=== PATIENT | female | born 1955 | race Caucasian/White ===

== ENCOUNTER 2021-01-18 10:55 | Emergency (ER) | payer SELFPAY ==
[2021-01-18 16:50] LABS: SARS-CoV-2 PCR by NAA Not Detected (NotDetected)
== END 2021-01-18 12:00 | disposition home or self-care (01) ==
LOC: ERS 10:55
DX: R05.9 Cough, unspecified (principal); R09.89 Other specified symptoms and signs involving the circulatory and respiratory systems; J34.89 Other specified disorders of nose and nasal sinuses; Z20.822 Contact with and (suspected) exposure to COVID-19
CPT/HCPCS: 71045; U0003; U0005

== ENCOUNTER 2022-01-08 10:15 | Emergency (ER) | payer SELFPAY ==
[2022-01-08] MEDS ORDERED: Dexamethasone 4 MG TAB ONE (11:30)
== END 2022-01-08 11:50 | disposition home or self-care (01) ==
LOC: ERS 10:15
DX: J06.9 Acute upper respiratory infection, unspecified (principal); Z20.822 Contact with and (suspected) exposure to COVID-19
CPT/HCPCS: 93005; 99283; J8540; U0003; U0005

== ENCOUNTER 2023-06-06 19:19 | Emergency (ER) | payer MEDICARE, SELFPAY ==
[2023-06-06 20:09] LABS: Influenza A by NAA Not Detected (NotDetected); SARS-CoV-2 NAA Rapid Test DETECTED (NotDetected)
== END 2023-06-06 21:45 | disposition home or self-care (01) ==
LOC: ERS 19:19
DX: U07.1 COVID-19 (principal)
CPT/HCPCS: 0241U; 99283

== ENCOUNTER 2023-09-15 12:22 | Outpatient (CLI) | payer MEDICARE | END 2023-09-15 12:23 | disposition home or self-care (01) | LOC: BICMAMMO 12:22 | PROVIDERS: ATTEND Family Medicine Sports Medicine | DX: Z12.31 Encounter for screening mammogram for malignant neoplasm of breast (principal) | CPT/HCPCS: 77063; 77067 ==

== ENCOUNTER 2024-06-03 16:08 | Inpatient (IN) | payer OTHER ==
[2024-06-03] MEDS ORDERED: Ondansetron PF 4 MG/2 ML Vial ONE (18:35)
[2024-06-03] MEDS ORDERED: Ketorolac Tromethamine 30 MG (1 mL) VIAL ONE (18:35)
[2024-06-03 18:42] LABS: #Basophils 0.03 10x3/uL (0.0-0.2); %Basophils 0.3 % (0.0-1.0); %Eosinophils 0.4 % (0.0-10.0); %Lymphocytes 8.4 % (21.0-51.0); %Monocytes 5.8 % (0.0-10.0); %Neutrophils 84.6 % (42.0-75.0); Hematocrit 41.1 % (36.0-47.0); Hemoglobin 13.9 g/dL (12.0-16.0); Mean Corpuscular HGB CONC 33.8 g/dL (32.0-36.0); Mean Corpuscular Hemoglobin 30.1 pg (27.0-31.0); Mean Platelet Volume 9.9 fL (7.4-10.4); Platelet Count 168 10x3/uL (130-400); RBC Distribution Width 13.1 % (11.5-14.5); Red Blood Cell (RBC) Count 4.62 mill/uL (4.20-5.40)
[2024-06-03 19:06] LABS: ALT (SGPT) 249 U/L (Less than 34); AST (SGOT) 317 U/L (11-34); Albumin 3.9 g/dL (3.1-4.5); Alkaline Phosphatase 150 U/L (40-110); Anion Gap 15 mmol/L (10-20); BUN (Urea Nitrogen) 10 mg/dL (9.8-20.1); Bilirubin, Total 3.6 mg/dL (0.3-1.2); Calc. Creatinine Clearance 0 mL/min (70-130); Calcium 8.9 mg/dL (7.8-10.44); Carbon Dioxide 24 mmol/L (23-31); Chloride 103 mmol/L (98-107); Estimated GFR 64; Globulin 3.7 g/dL (2.4-3.5); Glucose 100 mg/dL (80-115); Lipase 21 U/L (8-78); Potassium 4.3 mmol/L (3.5-5.1); Protein, Total 7.6 g/dL (5.8-8.1); Sodium 138 mmol/L (136-145)
[2024-06-03 19:07] LABS: Troponin I Less than 0.010 ng/mL (< 0.028)
[2024-06-03 19:48] LABS: Bilirubin 1+ (Negative); Blood, Urine 2+ (Negative); CAUTI Indications for Culture Pelvic or flank pain; Clarity Clear (Clear); Glucose, Urine (Dipstick) Normal (Negative); Ketone, Urine Negative (Negative); Leukocyte 75 Leu/uL (Negative); Nitrite Negative (Negative); Protein, Urine (Dipstick) 30 mg/dL (Neg-Trace); RBC/HPF 21-50 HPF (0-3); Specific Gravity, Urine 1.032 (1.002-1.036)
[2024-06-03 19:49] LABS: Bacteria/HPF 1+ HPF (None Seen); Urine Culture Reflex No No
[2024-06-03] MEDS ORDERED: Piperacillin/Tazobactam 3.375 GM VIAL ONE (20:52)
[2024-06-03] MEDS ORDERED: Sodium Chloride 0.9% 0 ML ONE (20:52)
[2024-06-03] MEDS ORDERED: Acetaminophen 325 MG TAB PO PRN (23:33)
[2024-06-03 23:54] VITALS: BMI 29.9
[2024-06-04] MEDS: Piperacillin/Tazobactam 3.375 GM in Sodium Chloride 0.9% 100 ML IVPB SCH (01:19)
[2024-06-04] MEDS: Ondansetron PF 4 MG/2 ML Vial IVP PRN (01:19)
[2024-06-04] MEDS: Ketorolac Tromethamine 30 MG (1 mL) VIAL IVP PRN (01:26)
[2024-06-04 05:48] LABS: #Basophils Less than 0.03 10x3/uL (0.0-0.2); %Basophils 0.4 % (0.0-1.0); %Eosinophils 1.8 % (0.0-10.0); %Lymphocytes 26.7 % (21.0-51.0); %Monocytes 11.1 % (0.0-10.0); %Neutrophils 59.6 % (42.0-75.0); Hematocrit 34.5 % (36.0-47.0); Hemoglobin 11.5 g/dL (12.0-16.0); Mean Corpuscular HGB CONC 33.3 g/dL (32.0-36.0); Mean Corpuscular Hemoglobin 29.9 pg (27.0-31.0); Mean Corpuscular Volume 89.6 fL (78.0-98.0); Mean Platelet Volume 9.5 fL (7.4-10.4); Platelet Count 143 10x3/uL (130-400); RBC Distribution Width 13.2 % (11.5-14.5); Red Blood Cell (RBC) Count 3.85 mill/uL (4.20-5.40)
[2024-06-04 06:02] LABS: ALT (SGPT) 196 U/L (Less than 34); AST (SGOT) 209 U/L (11-34); Albumin 3.1 g/dL (3.1-4.5); Alkaline Phosphatase 127 U/L (40-110); Anion Gap 13 mmol/L (10-20); BUN (Urea Nitrogen) 11 mg/dL (9.8-20.1); Calc. Creatinine Clearance 53 mL/min (70-130); Carbon Dioxide 23 mmol/L (23-31); Chloride 107 mmol/L (98-107); Estimated GFR 53; Globulin 2.8 g/dL (2.4-3.5); Glucose 91 mg/dL (80-115); Potassium 3.7 mmol/L (3.5-5.1); Protein, Total 5.9 g/dL (5.8-8.1); Sodium 139 mmol/L (136-145)
[2024-06-04] MEDS: Famotidine 20 MG TAB PO SCH (08:34)
[2024-06-04] MEDS: FLU (Fluad Triv) TS24-25 (65UP)/MF59C/PF 45 MCG/0.5 ML Syringe IM ONE (23:10)
[2024-06-05 05:38] LABS: #Basophils 0.05 10x3/uL (0.0-0.2); %Eosinophils 2.7 % (0.0-10.0); %Lymphocytes 33.7 % (21.0-51.0); %Monocytes 10.7 % (0.0-10.0); %Neutrophils 51.5 % (42.0-75.0); Hematocrit 36.1 % (36.0-47.0); Mean Corpuscular HGB CONC 33.2 g/dL (32.0-36.0); Mean Corpuscular Hemoglobin 30.4 pg (27.0-31.0); Mean Corpuscular Volume 91.4 fL (78.0-98.0); Mean Platelet Volume 10.5 fL (7.4-10.4); Platelet Count 156 10x3/uL (130-400); RBC Distribution Width 13.2 % (11.5-14.5); Red Blood Cell (RBC) Count 3.95 mill/uL (4.20-5.40)
[2024-06-05 05:51] LABS: ALT (SGPT) 157 U/L (Less than 34); AST (SGOT) 114 U/L (11-34); Alkaline Phosphatase 115 U/L (40-110); Anion Gap 11 mmol/L (10-20); BUN (Urea Nitrogen) 10 mg/dL (9.8-20.1); Bilirubin, Total 2.1 mg/dL (0.3-1.2); Calc. Creatinine Clearance 48 mL/min (70-130); Calcium 8.3 mg/dL (7.8-10.44); Carbon Dioxide 25 mmol/L (23-31); Chloride 108 mmol/L (98-107); Estimated GFR 47; Globulin 2.8 g/dL (2.4-3.5); Glucose 86 mg/dL (80-115); Potassium 4.3 mmol/L (3.5-5.1); Protein, Total 5.8 g/dL (5.8-8.1); Sodium 140 mmol/L (136-145)
[2024-06-05] MEDS ORDERED: Indomethacin 50 MG SUPP ONE (11:40)
[2024-06-05] MEDS ORDERED: Iopamidol 30 ML ONE (11:42)
[2024-06-05] MEDS ORDERED: fentaNYL PF 100 MCG/2 ML SYRINGE ONE (12:05)
[2024-06-05] MEDS ORDERED: Dexamethasone 20 MG/5 ML VIAL ONE (12:05)
[2024-06-05] MEDS ORDERED: Rocuronium Bromide 10 MG/ML (10ML VIAL) ONE ×2 (12:05→12:16)
[2024-06-05] MEDS ORDERED: Ondansetron PF 4 MG/2 ML Vial ONE (12:05)
[2024-06-05] MEDS ORDERED: Lidocaine 2% PF 5 ML VIAL ONE (12:05)
[2024-06-05] MEDS ORDERED: PROPOFOL 20 ML ONE (12:07)
[2024-06-05] MEDS ORDERED: Lidocaine 2% 6 ML (Jelly) SYR ONE (12:11)
[2024-06-05] MEDS ORDERED: GLYCOPYRROLATE/PF 0.2 MG/ML VIAL ONE (12:49)
[2024-06-05] MEDS ORDERED: Glucagon 1 MG/ML KIT ONE (13:01)
[2024-06-05] MEDS ORDERED: Promethazine HCl 25 MG/ML VIAL IM PRN (13:10)
[2024-06-05] MEDS ORDERED: Ondansetron HCl/PF 4 MG/2 ML Vial IVP PRN (13:10)
[2024-06-05] MEDS ORDERED: HYDROmorphone 2 MG/ML VIAL SLOW IVP PRN (13:10)
[2024-06-05] MEDS ORDERED: SUGAMMADEX SODIUM 200 MG/2 ML VIAL ONE (14:01)
[2024-06-05] MEDS ORDERED: Indocyanine Green 25 MG/10 ML VIAL IVP SCH (19:00)
[2024-06-05] MEDS: Benzonatate 100 MG CAP PO PRN (20:07)
[2024-06-05] MEDS: Ketorolac Tromethamine 30 MG (1 mL) VIAL IVP SCH (22:01)
[2024-06-06] MEDS: Famotidine 20 MG TAB PO SCH (05:17)
[2024-06-06 07:15] LABS: #Basophils Less than 0.03 10x3/uL (0.0-0.2); #Eosinophils Less than 0.03 10x3/uL (0.0-0.7); %Basophils 0.2 % (0.0-1.0); %Monocytes 7.2 % (0.0-10.0); Hematocrit 35.3 % (36.0-47.0); Hemoglobin 11.7 g/dL (12.0-16.0); Mean Corpuscular HGB CONC 33.1 g/dL (32.0-36.0); Mean Corpuscular Volume 90.5 fL (78.0-98.0); Mean Platelet Volume 10.6 fL (7.4-10.4); Platelet Count 151 10x3/uL (130-400)
[2024-06-06 07:52] LABS: ALT (SGPT) 123 U/L (Less than 34); AST (SGOT) 73 U/L (11-34); Albumin 3.2 g/dL (3.1-4.5); Alkaline Phosphatase 107 U/L (40-110); Anion Gap 14 mmol/L (10-20); BUN (Urea Nitrogen) 11 mg/dL (9.8-20.1); Bilirubin, Total 1.5 mg/dL (0.3-1.2); Calc. Creatinine Clearance 54 mL/min (70-130); Calcium 8.4 mg/dL (7.8-10.44); Carbon Dioxide 20 mmol/L (23-31); Chloride 110 mmol/L (98-107); Estimated GFR 54; Globulin 3.4 g/dL (2.4-3.5); Glucose 109 mg/dL (80-115); Potassium 4.5 mmol/L (3.5-5.1); Protein, Total 6.6 g/dL (5.8-8.1); Sodium 139 mmol/L (136-145)
[2024-06-06] MEDS ORDERED: Bupivacaine 0.25% HCL 30 ML VIAL ONE (13:29)
[2024-06-06] MEDS ORDERED: EPINEPHrine 1 MG/ML VIAL ONE (13:29)
[2024-06-06] MEDS ORDERED: Midazolam HCl 2 mg/2 ml Vial ONE (13:37)
[2024-06-06] MEDS ORDERED: fentaNYL PF 100 MCG/2 ML SYRINGE ONE (13:37)
[2024-06-06] MEDS ORDERED: PROPOFOL 20 ML ONE (13:37)
[2024-06-06] MEDS ORDERED: Rocuronium Bromide 10 MG/ML (10ML VIAL) ONE (13:38)
[2024-06-06] MEDS ORDERED: Dexamethasone 4 mg/ml Vial ONE (13:39)
[2024-06-06] MEDS ORDERED: Lidocaine 1% PF 5 ML VIAL ONE (13:39)
[2024-06-06] MEDS ORDERED: CEFAZOLIN 2 GM VIAL ONE (14:07)
[2024-06-06] MEDS ORDERED: Esmolol 100 MG/10 ML VIAL ONE (14:48)
[2024-06-06] MEDS ORDERED: Glycopyrrolate 0.2 MG/ML 5 ML SYRINGE ONE (14:48)
[2024-06-06] MEDS ORDERED: Ondansetron PF 4 MG/2 ML Vial ONE ×2 (14:48→14:49)
[2024-06-06] MEDS ORDERED: fentaNYL 50 mcg/mL 1 mL Vial ONE (14:58)
[2024-06-06] MEDS ORDERED: SUGAMMADEX SODIUM 200 MG/2 ML VIAL ONE ×2 (15:04→15:12)
[2024-06-06] MEDS ORDERED: PHENYLEPHRINE-NS 100 MCG/ML 10 ML SYRINGE ONE (15:11)
[2024-06-06] MEDS ORDERED: Albuterol HFA (OR) 200 PUFF INH ONE (15:20)
[2024-06-06] MEDS: rOPINIRole HCl 0.25 MG TAB PO SCH (20:31)
[2024-06-07 07:36] LABS: #Basophils Less than 0.03 10x3/uL (0.0-0.2); #Eosinophils Less than 0.03 10x3/uL (0.0-0.7); %Basophils 0.2 % (0.0-1.0); %Lymphocytes 11.7 % (21.0-51.0); %Monocytes 5.9 % (0.0-10.0); %Neutrophils 81.7 % (42.0-75.0); Hemoglobin 12.4 g/dL (12.0-16.0); Mean Corpuscular HGB CONC 33.5 g/dL (32.0-36.0); Mean Corpuscular Hemoglobin 30.2 pg (27.0-31.0); Mean Platelet Volume 10.3 fL (7.4-10.4); Platelet Count 156 10x3/uL (130-400); RBC Distribution Width 13.2 % (11.5-14.5); Red Blood Cell (RBC) Count 4.11 mill/uL (4.20-5.40)
[2024-06-07 11:36] VITALS: BP 113/72; TEMP 97.3
== END 2024-06-07 14:53 | disposition home or self-care (01) | DRG 418 ==
LOC: ERS 16:08 → SURG A 21:37
PROVIDERS: ADMIT Internal Medicine; ATTEND Internal Medicine
PROC: 0F798ZZ Dilation of Common Bile Duct, Via Natural or Artificial Opening Endoscopic (ICD-10-PCS; 2024-06-05)
PROC: BF131ZZ Fluoroscopy of Gallbladder and Bile Ducts using Low Osmolar Contrast (ICD-10-PCS; 2024-06-05)
PROC: 0FT44ZZ Resection of Gallbladder, Percutaneous Endoscopic Approach (ICD-10-PCS; principal; 2024-06-06)
DX: K81.0 Acute cholecystitis (principal); N39.0 Urinary tract infection, site not specified; K29.70 Gastritis, unspecified, without bleeding; R07.89 Other chest pain; F17.210 Nicotine dependence, cigarettes, uncomplicated; K21.9 Gastro-esophageal reflux disease without esophagitis; G25.81 Restless legs syndrome; Z98.51 Tubal ligation status
CPT/HCPCS: 36415; 71045; 74177; 74181; 74330; 76376; 76705; 80053; 81001; 83690; 84484; 85025; 88304; 93005; 96365; 96374; 96375; C1769; C1889; J0171; J0665; J1100; J1611; J1885; J2250; J2405; J2470; J2543; J2704; J3010; J3490; Q9967

== ENCOUNTER 2024-12-18 08:43 | Outpatient (CLI) | payer OTHER | END 2024-12-18 08:44 | disposition home or self-care (01) | LOC: BICMAMMO 08:43 | PROVIDERS: ATTEND Family Medicine Sports Medicine | DX: Z12.31 Encounter for screening mammogram for malignant neoplasm of breast (principal) | CPT/HCPCS: 77063; 77067 ==

== ENCOUNTER 2025-01-31 11:46 | Outpatient (CLI) | payer OTHER | END 2025-01-31 11:47 | disposition home or self-care (01) | LOC: SCSRAD 11:46 | PROVIDERS: ATTEND Family Medicine Sports Medicine | DX: M79.671 Pain in right foot (principal); K21.9 Gastro-esophageal reflux disease without esophagitis | CPT/HCPCS: 36415; 80053; 80061; 83036; 84550; 85025; 86140 ==